=== PATIENT | male | born 1950 | race African-American/Black ===

== ENCOUNTER 2017-11-17 09:05 | Emergency (ER) | payer SELFPAY ==
[2017-11-17] MEDS: BUDESONIDE 0.5MG/2ML AMPUL.NEB NEB SCH ×2 (09:10→10:51)
[2017-11-17] MEDS ORDERED: IPRATROPIUM/ALBUTEROL SULFATE 3 ML AMPUL.NEB NEB ONE (09:15)
--- NOTE | 2017-11-17 09:15 | ED Physician Documentation ---
General Adult - HISTORIAN Historian: patient - HPI Stated Complaint: sob Chief Complaint: General Adult Onset: days ago Timing: still present Severity: moderate Further Comments: yes (Pt is a 67 yo male with sob. Pt has a hx asthma. 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 Pt has had no chest pain. Pt's only med is albuterol.) - ROS CONST: no problems EYES/ENT: none CVS/RESP: shortness of breath GI/: none MS/SKIN/LYMPH: none - PAST HX Past History: asthma Allergies/Adverse Reactions: Allergies Allergy/AdvReac Type Severity Reaction Status Date / Time No Known Allergies Allergy Verified 11/17/17 09:12 - SOCIAL HX Smoking History: quit greater than 1 year - FAMILY HX Family History: No - REVIEWED ASSESSMENTS Nursing Assessment Reviewed: Yes Vitals Reviewed: Yes Progress - Progress Progress: Duoneb HFN Solu-medrol 125 mg IV Pulmicort HFN 0.5 mg Albuterol HFN Pulmicort HFN 0.5 mg Albuterol HFN much improved d/c instructions Rx Albuterol (90 mcg/spray) MDI. Take 2 puffs every 4 to 6 hrs as needed for wheezing. Rx Flovent (110 mcg/spray). Take 2 puffs every 12 hrs for 3 days; then 1 puff every 12 hrs for 3 days; then 1 puff daily for 3 days. Rx Prednisone 50 mg. Take one tablet by mouth once daily for 4 days. Start tomorrow 11-18-17. Rx MDI spacer. Use as directed. - EKG/XRAY/CT EKG: rhythm (sinus tachycardia, OQ=213; normal VT interval; normal axis.) XRAY: chest (No active disease.) General Adult Physical Exam - PHYSICAL EXAM GENERAL APPEARANCE: moderate distress EENT: pharynx normal NECK: normal inspection, supple RESPIRATORY: wheezes, other (using accessory muscles) CVS: tachycardia BACK: normal inspection SKIN: warm/dry, normal color EXTREMITIES: non-tender, normal range of motion, no evidence of injury NEURO: oriented X3, motor nml, sensation nml Discharge Clincal Impression: Asthma exacerbation Qualifiers: Asthma severity: moderate Asthma persistence: unspecified Qualified Code(s): J45.901 - Unspecified asthma with (acute) exacerbation Referrals: Primary Doctor,No [Primary Care Provider] - Condition: Stable Disposition: 01 HOME, SELF-CARE Decision to Admit: NO Decision Time: 11:57
[2017-11-17] MEDS ORDERED: methylPREDNISolone SOD SUCC 125 MG/2 ML VIAL IVP ONE (09:16)
[2017-11-17] MEDS ORDERED: ALBUTEROL SULFATE 2.5 MG/3 ML AMPUL.NEB NEB ONE ×3 (09:25→11:00)
[2017-11-17 09:30] LABS: BASOPHILS % 0.7 (0.0-1.5); EOSINOPHILS % 9.3 % (0.0-6.8); MEAN CORPUSCULAR HEMOGLOBIN 30.6 pg (28.0-34.0); MEAN CORPUSCULAR VOLUME 96.1 fl (80.0-100.0); MONOCYTES % 8.2 % (0.0-11.0); NEUTROPHILS # 3.2 # k/uL (1.4-7.7)
[2017-11-17 09:39] LABS: eGFR (African) > 60; eGFR (Non-African) > 60
--- NOTE | 2017-11-17 10:08 | Diagnostic Imaging Report ---
JAILENE HERNANDEZ [facility] [address] [facility] [address] [address] Report Submission Date: Nov 17, 2017 10:04:37 AM ENRICHMENT DIRECTOR Patient Study Name: SHAMIKA SPRING Date: Nov 17, 2017 9:46:18 AM ENRICHMENT DIRECTOR Modality Type: CR Gender: M Description: CHEST : 54 Institution: [facility] Physician: JAILENE HERNANDEZ AP chest, Portable History: Shortness of breath Findings: No infiltrate, effusion or pneumothorax is present. Heart size, mediastinum and pulmonary vascularity are normal. Impression: No active disease. Electronically signed on Nov 17, 2017 10:04:37 AM ENRICHMENT DIRECTOR by: Frank ADAN
[2017-11-17] MEDS ORDERED: BUDESONIDE 0.5MG/2ML AMPUL.NEB NEB ONE (10:49)
[2017-11-17] MEDS ORDERED: BUDESONIDE 0.5MG/2ML AMPUL.NEB NEB SCH (11:00)
[2017-11-17 13:28] VITALS: BP 125/84
== END 2017-11-17 13:26 | disposition home or self-care (01) ==
LOC: ED 09:05
DX: J45.901 Unspecified asthma with (acute) exacerbation (principal)
CPT/HCPCS: 71010; 80053; 82550; 82553; 83880; 84484; 85025; 93005; J2930; J7626; 96372; 99283; S1016